=== PATIENT | female | born 1990 | race Two or more races ===

== ENCOUNTER 2020-04-16 15:00 | Inpatient (IN) | payer MEDICAID, OTHER ==
[~2020-04-16] VITALS: Ht 154.9 cm; Wt 92.1 kg
[2020-04-16 16:17] LABS: Basophils # (auto) 0 10 ^3/uL (0-0.2); Basophils % (auto) 0.5 % (0.0-2.0); Eosinophils # (auto) 0.1 10 ^3/uL (0-0.8); Eosinophils % (auto) 0.8 % (0.0-7.0); Hematocrit 38.6 % (36.0-46.0); Hemoglobin 12.4 g/dL (12.2-16.2); Lymphocytes # (auto) 0.8 10 ^3/uL (0.4-5.4); Lymphocytes % (auto) 9.3 % (10.0-50.0); Mean Corpuscular Hgb Conc. 32.2 g/dL (32.0-36.0); Mean Corpuscular Volume 83.8 fL (80.0-100.0); Monocytes # (auto) 0.3 10 ^3/uL (0-1.3); Monocytes % (auto) 3.9 % (0.0-12.0); Neutrophils # (auto) 7.4 10 ^3/uL (1.6-8.6); Neutrophils % (auto) 85.5 % (37.0-80.0); Platelet Count (auto) 274 10^3/uL (140-450); Red Cell Distribution Width 14.3 % (11.8-14.3); White Blood Cell 8.7 10^3/uL (4.4-10.8)
[2020-04-16 16:24] LABS: Urine Bacteria NONE SEEN /hpf (None Seen); Urine Blood 2+ /uL (Negative); Urine Mucus FEW (None Seen); Urine Specific Gravity 1.013 (1.001-1.035); Urine WBC 13 /hpf (0 - 5)
[2020-04-16 16:36] LABS: Albumin 3.9 g/dL (3.4-5.0); Calcium 9.4 mg/dL (8.5-10.1); Potassium 4.2 mmol/L (3.5-5.1)
[2020-04-16 16:41] LABS: BUN/Creatinine Ratio 14.8; Bilirubin, Total 0.3 mg/dL (0.2-1.0); Total Protein 8.2 g/dL (6.4-8.2)
[2020-04-16] MEDS ORDERED: ONDANSETRON HCL 4 MG/2 ML VIAL IV ONE (19:30)
[2020-04-16] MEDS ORDERED: KETOROLAC TROMETH 30 MG/ML 1ML VIAL IV ONE (19:30)
[2020-04-16] MEDS ORDERED: SODIUM CHLORIDE 0.9% 1,000 ML IVB ONE (19:30)
[2020-04-17] MEDS ORDERED: KETOROLAC TROMETH 30 MG/ML 1ML VIAL IV ONE (02:45)
[2020-04-17] MEDS ORDERED: NITROGLYCERIN 0.4 MG SL TAB SL PRN (03:30)
[2020-04-17] MEDS ORDERED: MORPHINE SULFATE 4 MG/ML SYR/VIAL IV PRN (03:30)
[2020-04-17] MEDS ORDERED: ONDANSETRON HCL 4 MG/2 ML VIAL IV PRN (03:30)
[2020-04-17] MEDS ORDERED: MORPHINE SULF INJ 2 MG/ML SYRINGE 1ML IV PRN (03:30)
[2020-04-17] MEDS ORDERED: KETOROLAC TROMETH 30 MG/ML 1ML VIAL IV PRN (03:30)
[2020-04-17] MEDS ORDERED: ACETAMINOPHEN 325 MG TAB PO PRN (03:30)
[2020-04-17] MEDS ORDERED: HYDROcodone-ACET 5/325MG TAB PO PRN (03:30)
[2020-04-17] MEDS ORDERED: SODIUM CHLORIDE 0.9% 1,000 ML IV SCH (03:30)
[2020-04-17] MEDS ORDERED: DOCUSATE SOD 100 MG CAP PO PRN (03:30)
[2020-04-17 08:31] LABS: Basophils # (auto) 0.1 10 ^3/uL (0-0.2); Basophils % (auto) 0.9 % (0.0-2.0); Eosinophils # (auto) 0.2 10 ^3/uL (0-0.8); Eosinophils % (auto) 3.4 % (0.0-7.0); Hematocrit 36.3 % (36.0-46.0); Lymphocytes # (auto) 1.5 10 ^3/uL (0.4-5.4); Lymphocytes % (auto) 25.6 % (10.0-50.0); Mean Corpuscular Hemoglobin 27.8 pg (28.0-32.0); Mean Corpuscular Hgb Conc. 33.1 g/dL (32.0-36.0); Monocytes # (auto) 0.4 10 ^3/uL (0-1.3); Monocytes % (auto) 6.7 % (0.0-12.0); Neutrophils # (auto) 3.8 10 ^3/uL (1.6-8.6); Neutrophils % (auto) 63.4 % (37.0-80.0); Nucleated Red Blood Cells % 0.2 %; Platelet Count (auto) 251 10^3/uL (140-450); Red Blood Cells 4.31 10^6/uL (4.0-5.20); Red Cell Distribution Width 14.7 % (11.8-14.3)
--- NOTE | 2020-04-17 09:00 | NUR ---
RECEIVED PT FROM ER RECEIVED PT FROM ER. PT STABLE AT THIS TIME. ORIENTED TO ROOM. BED IN LOWEST POSITION, TOP TWO SIDE RAILS UP, CALL LIGHT WITHIN REACH.
[2020-04-17 09:12] LABS: BUN/Creatinine Ratio 20.3; Calcium 8.7 mg/dL (8.5-10.1); Potassium 3.9 mmol/L (3.5-5.1)
[2020-04-17] MEDS ORDERED: PANTOPRAZOLE 40 MG/10 ML VIAL INJ IV SCH (10:00)
[2020-04-17] MEDS ORDERED: ENOXAPARIN SOD 40 MG/0.4 ML SYRINGE SC SCH (10:00)
[2020-04-17 12:58] VITALS: BP 112/68
[2020-04-17] MEDS ORDERED: ACET-1079 PO (14:43)
[2020-04-17] MEDS ORDERED: HYDR-4833 PO (14:43)
[2020-04-17 16:43] VITALS: BP 110/71
--- NOTE | 2020-04-17 17:30 | NUR ---
DISCHARGE DISCHARGE INSTRUCTIONS GIVEN TO PT. PT VERBALIZED UNDERSTANDING. PAPERWORK GIVEN TO PATIENT. SHE IS AWARE MD SENT PRESCRIPTIONS TO PHARMACY. IV D/C'D IV CATHETER INTACT. PER DR RAY DISCHARGE PT WITH URINE STRAINER, STRAINER GIVEN TO PT. PT STABLE AT THIS TIME. PT HAS ALL BELONGINGS. PT AWAITING RIDE HOME FROM FAMILY.
== END 2020-04-17 18:00 | disposition home or self-care (01) | DRG 465 ==
LOC: ER 15:00 → TELE 15:01 → TELE-CENTR 04-17 08:45
PROVIDERS: ADMIT Nurse Practitioner Family; ATTEND Nurse Practitioner Family
DX: N20.2 Calculus of kidney with calculus of ureter (principal); E66.01 Morbid (severe) obesity due to excess calories; J45.909 Unspecified asthma, uncomplicated; Z68.38 Body mass index [BMI] 38.0-38.9, adult
CPT/HCPCS: 36415; 74176; 80048; 80053; 81001; 84702; 85025; C9113; G0378; J1885; J2405

== ENCOUNTER → 2020-05-20 | Emergency (ER) | payer MEDICAID ==
[~2020-05-20] VITALS: Ht 154.9 cm; Wt 90.7 kg
[~2020-05-20] MED LIST: ACET-1079 PO; HYDR-4833 PO
[2020-05-20 12:46] VITALS: BP 120/81
== END | disposition home or self-care (01) ==
LOC: ER 12:09
DX: M79.10 Myalgia, unspecified site (principal); R43.8 Other disturbances of smell and taste; J45.909 Unspecified asthma, uncomplicated; Z20.828 Contact with and (suspected) exposure to other viral communicable diseases; Z87.442 Personal history of urinary calculi
CPT/HCPCS: 36415; 71045; 87426

== ENCOUNTER 2022-05-15 13:15 | Emergency (ER) | payer BC, MEDICAID ==
[~2022-05-15] VITALS: Ht 154.9 cm; Wt 87.6 kg
[2022-05-15 13:25] VITALS: BP 115/81
[2022-05-15 14:22] LABS: Urine Bacteria FEW /hpf (None Seen); Urine Blood Negative /uL (Negative); Urine Hyaline Cast FEW /lpf (0 - 2); Urine Mucus FEW (None Seen); Urine Specific Gravity 1.034 (1.001-1.035); Urine WBC 10 /hpf (0 - 5)
[2022-05-15] MEDS ORDERED: PROM1SOL4 PO (17:14)
[2022-05-15] MEDS ORDERED: METH4PAK PO (17:14)
[2022-05-15] MEDS ORDERED: ALBU108A5 IN (17:14)
[2022-05-15] MEDS ORDERED: MONT-8 PO (17:14)
[2022-05-15] MEDS ORDERED: CEPH-510 PO (17:34)
== END 2022-05-15 18:08 | disposition home or self-care (01) ==
LOC: ER 13:15
DX: J10.1 Influenza due to other identified influenza virus with other respiratory manifestations (principal); J40 Bronchitis, not specified as acute or chronic; N39.0 Urinary tract infection, site not specified; Z20.822 Contact with and (suspected) exposure to COVID-19
CPT/HCPCS: 36415; 81001; 81025; 87426; 87804

== ENCOUNTER 2023-02-22 15:14 | Emergency (ER) | payer BC, MEDICAID ==
[~2023-02-22] VITALS: Ht 154.9 cm; Wt 86.5 kg
[~2023-02-22 15:14] MED LIST changes: +ALBU108A5 IN; +CEPH-510 PO; +METH4PAK PO; +MONT-8 PO; +PROM1SOL4 PO
[2023-02-22 16:07] VITALS: BP 130/81; PULSE 85; RESP 18; O2SAT 98
[2023-02-22] MEDS ORDERED: ACETAMINOPHEN 500 MG TAB PO ONE (16:15)
[2023-02-22 16:57] VITALS: TEMP 97.7
[2023-02-22] MEDS ORDERED: SUMA50TA2 PO (17:35)
== END 2023-02-22 17:41 | disposition home or self-care (01) ==
LOC: ER 15:14
DX: G43.909 Migraine, unspecified, not intractable, without status migrainosus (principal); J45.909 Unspecified asthma, uncomplicated
CPT/HCPCS: 70450

== ENCOUNTER 2023-11-14 02:41 | Emergency (ER) | payer MEDICAID ==
[~2023-11-14] VITALS: Ht 154.9 cm; Wt 86.2 kg
[~2023-11-14 02:41] MED LIST changes: +SUMA50TA2 PO
[2023-11-14 03:11] LABS: Urine Bacteria None Seen /hpf (None Seen)
[2023-11-14 03:39] LABS: Urine Amorphous Crystal FEW /hpf (None Seen); Urine Blood Negative /uL (Negative); Urine Clarity Turbid (Clear); Urine Color Light-Yellow (Yellow); Urine Mucus FEW (None Seen); Urine Protein, UAD Negative (Negative); Urine Specific Gravity 1.021 (1.001-1.035); Urine Urobilinogen Normal (Negative); Urine WBC 26 /hpf (0 - 5); Urine pH 5.5 (5.0-9.0)
[2023-11-14] MEDS: ALBUTEROL SULF 2.5 MG/0.5ML(0.5%) NEB SOLN NEB ONE (04:15)
[2023-11-14] MEDS: IPRATROPIUM BROM 0.5 MG/2.5ML INH SOL NEB ONE (04:15)
[2023-11-14] MEDS: BUDESONIDE (INHALATION) 0.5 MG/2 ML NEB NEB ONE (04:15)
[2023-11-14 04:20] VITALS: BP 100/72; PULSE 90; RESP 20; TEMP 98; O2SAT 97
[2023-11-14] MEDS ORDERED: CEPH500T PO (04:51)
[2023-11-14] MEDS: CEPHALEXIN 250 MG CAP PO ONE (05:43)
== END 2023-11-14 05:45 | disposition home or self-care (01) ==
LOC: ER 02:41
DX: O21.8 Other vomiting complicating pregnancy (principal); R10.2 Pelvic and perineal pain; J45.909 Unspecified asthma, uncomplicated; Z87.442 Personal history of urinary calculi
CPT/HCPCS: 36415; 81001; 84702; 94640; 99283; J7644

== ENCOUNTER 2025-05-08 16:26 | Emergency (ER) | payer MEDICAID ==
[~2025-05-08] VITALS: Ht 177.8 cm; Wt 102.2 kg
[~2025-05-08 16:26] MED LIST changes: +CEPH500T PO
[2025-05-08 17:43] LABS: Hematocrit 39.4 % (36.0-46.0); Hemoglobin 13.1 g/dL (12.2-16.2); Mean Corpuscular Hemoglobin 27.2 pg (28.0-32.0); Mean Corpuscular Volume 81.6 fL (80.0-100.0); Nucleated Red Blood Cells % 0.0 %
[2025-05-08 18:01] LABS: Albumin 4.3 g/dL (3.2-4.8); Alkaline Phosphatase 87 U/L (46-116); Anion Gap 9 (5-15); BUN/Creatinine Ratio 9.9 (10.0-20.0); Calcium 9.3 mg/dL (8.7-10.4); Carbon Dioxide 27 mmol/L (20-31); Chloride 104 mmol/L (98-107); Glucose 104 mg/dL (74-106); Lipase 28 U/L (12-53); Sodium 140 mmol/L (136-145); Total Protein 7.8 g/dL (5.7-8.2)
[2025-05-08 18:02] LABS: Bilirubin, Total 0.4 mg/dL (0.2-1.0)
[2025-05-08 18:03] LABS: Alanine Aminotransferase 9 U/L (7-40); Blood Urea Nitrogen 7 mg/dL (9-23); Potassium 3.4 mmol/L (3.5-5.1)
--- NOTE | 2025-05-08 18:05 | ED.PDOC ---
History of Present Illness HPI Comments 34-year-old female presents to the ER with prior medical history of asthma, kidney stones, chronic back pain and the chief complaint of abdominal pain. Patient reports having left upper quadrant in which started yesterday and feels like it is turning inside out. Patient notes that family members at home had similar symptoms but subsided. Patient is currently having nausea and vomiting, and took [id number] meds with no relief. Denies any other symptoms at this time. Denies chills, fever, /D, SOB, CP. No other associated symptoms, modifiers, recent injuries or sick contacts present at this time. Chief Complaint: Abdominal Pain Time Seen by MD: 17:30 Primary Care Provider: NONE Reviewed Notes: Nurses Notes, Medications, Allergies Allergies: Coded Allergies: NO KNOWN ALLERGIES (Unverified , 10/07/13) Home Meds Active Scripts Cephalexin Monohydrate (Cephalexin) 500 Mg Tab, 1 TAB PO TID for 7 Days, #21 TAB Prov:RENY RAM DO 11/14/23 Sumatriptan Succinate (Imitrex) 50 Mg Tab, 1 TAB PO BID PRN, #20 TAB 1 Refill Prov:EUN MORENO 02/22/23 Cephalexin ( Keflex 500) 500 Mg Cap, 1 CAP PO QID for 7 Days, #28 CAP Prov:VERONA MARVIN 05/15/22 Montelukast Sodium (MONTELUKAST SODIUM) 10 Mg Tab, 1 TAB PO DAILY, #30 TAB 5 Refills Prov:VERONA MARVIN 05/15/22 Albuterol Sulfate (Albuterol Sulfate Hfa) 108 Mcg/Act Aer, 108 MCG IN TID PRN, #1 AER Prov:VERONA MARVIN 05/15/22 Promethazine-Dm (Promethazine Dm 6.25-15 mg/5Ml) 1 Janee Janee, 5 ML PO TID PRN, #200 ML Prov:VERONA MARVIN 05/15/22 Methylprednisolone (Medrol Dosepak) 4 Mg Derek, 4 MG PO UD, #21 TAB UAD Prov:VERONA MARVIN 05/15/22 Hydrocodone-Acetaminophen ([place] 5/325MG) 1 Tab Tb, 1 TAB PO Q6HP PRN MDD severe pain, #20 MG Prov:IMANI RAY MD 04/17/20 Acetaminophen (Tylenol) 325 Mg Tb, 650 MG PO Q6HR PRN MDD mild to moderate pain , #40 TAB Prov:IMANI RAY MD 04/17/20 Information Source: Patient Mode of Arrival: Ambulatory Severity: Moderate Timing: Hours Duration: Since onset, Hours Prehospital treatment: None Past Medical History PAST MEDICAL HISTORY: Asthma, Kidney Stones Past Medical History (Other): Chronic back pain Surgical History: Denies all surgeries 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 Hx Family History Family History: Reviewed,noncontributory to illness, Unknown Social History Smoker: Non-Smoker Alcohol: Rarely Drugs: Denies Drug Use Lives In: Home Constitutional: denies: chills, diaphoresis, fatigue, fever, malaise, sweats, weakness, others EENTM: denies: blurred vision, double vision, ear bleeding, ear discharge, ear drainage, ear pain, ear ringing, eye pain, eye redness, hearing loss, mouth pain, mouth swelling, nasal discharge, nose bleeding, nose congestion, nose pain, photophobia, tearing, throat pain, throat swelling, voice changes, others Respiratory: denies: cough, hemoptysis, orthopnea, SOB at rest, shortness of breath, SOB with excertion, stridor, wheezing, others Cardiovascular: denies: chest pain, dizzy spells, diaphoresis, Dyspnea on exertion, edema, irregular heart beat, left arm pain, lightheadedness, palpitations, PND, syncope, others Gastrointestinal: reports: abdominal pain, nausea, vomiting; denies: abdomen distended, blood streaked bowels, constipated, diarrhea, dysphagia, difficulty swallowing, hematemesis, melena, poor appetite, poor fluid intake, rectal bleeding, rectal pain, others Genitourinary: denies: abnormal vagina bleeding, burning, dyspareunia, dysuria, flank pain, frequency, hematuria, incontinence, pain, , vagina discharge, urgency, others Neurological: denies: dizziness, fainting, headache, left sided numbness, left sided weakness, numbness, paresthesia, pre-existing deficit, right sided numbness, right sided weakness, seizure, speech problems, tingling, tremors, weakness, others Musculoskeletal: denies: back pain, gout, joint pain, joint swelling, muscle pain, muscle stiffness, neck pain, others Integumetry: denies: bruises, change in color, change in hair/nails, dryness, laceration, lesions, lumps, rash, wounds, others Allergic/Immunocompromised: denies: Difficulty Healing, Frequent Infections, Hives, Itching, others Hematologic/Lymphatic: denies: anemia, blood clots, easy bleeding, easy bruising, swollen glands, others Endocrine: denies: excessive hunger, excessive sweating, excessive thirst, excessive urination, flushing, intolerance to cold, intolerance to heat, unexplained weight gain, unexplained weight loss, others Psychiatric: denies: anxiety, bipolar disorder, depression, hopeless, panic disorder, schizophrenia, sleepless, suicidal, others All Other Systems: Reviewed and Negative Physical Exam Exam Comments Left upper quadrant pain General Appearance: No Apparent Distress, Normal HEENT: Normal ENT Inspection, Pharynx Normal, TMs Normal Neck: Full Range of Motion, Non-Tender, Normal, Normal Inspection Respiratory: Chest Non-Tender, Lungs Clear, No Accessory Muscle Use, No Respiratory Distress, Normal Breath Sounds Cardiovascular: No Edema, No JVD, No Murmur, No Gallop, Normal Peripheral Pulses, Regular Rate/Rhythm Breast Exam: Deferred Gastrointestinal: No Organomegaly, Non Tender, No Pulsatile Mass, Normal Bowel Sounds, Soft Genitalia: Deferred Pelvic: Deferred Rectal: Deferred Extremities: No calf tenderness, Normal capillary refill, Normal inspection, Normal range of motion, Non-tender, No pedal edema Musculoskeletal : Apperance: Normal Neurologic: Alert, vice president marketing & development II-XII nml as Tested, No Motor Deficits, Normal Affect, Normal Mood, No Sensory Deficits Cerebellar Function: Normal Reflexes: Normal Skin: Dry, Normal Color, Warm Lymphatic: No Adenopathy Was a procedure done? Was a procedure done?: No Differential Dx Considerations may include: Enteritis, viral syndrome, electrolyte abnormalities, infectious etiology X-Ray, Labs, Meds, VS Vital Signs Date Time Temp Pulse Resp B/P (MAP) Pulse Ox O2 Delivery O2 Flow Rate FiO2 05/08/25 16:30 98.1 125 20 117/84 96 98.1 Lab Test 05/08/25 17:22 Range/Units White Blood Count 9.0 4.4-10.8 10^3/uL Red Blood Count 4.83 4.0-5.20 10^6/uL Hemoglobin 13.1 12.2-16.2 g/dL Hematocrit 39.4 36.0-46.0 % Mean Corpuscular Volume 81.6 80.0-100.0 fL Mean Corpuscular Hemoglobin 27.2 L 28.0-32.0 pg Mean Corpuscular Hemoglobin Concent 33.3 32.0-36.0 g/dL Red Cell Distribution Width 14.9 H 11.8-14.3 % Platelet Count 346 140-450 10^3/uL Mean Platelet Volume 6.9 6.9-10.8 fL Neutrophils (%) (Auto) 69.0 37.0-80.0 % Lymphocytes (%) (Auto) 21.0 10.0-50.0 % Monocytes (%) (Auto) 6.6 0.0-12.0 % Eosinophils (%) (Auto) 2.7 0.0-7.0 % Basophils (%) (Auto) 0.7 0.0-2.0 % Neutrophils # (Auto) 6.2 1.6-8.6 10 ^3/uL Lymphocytes # (Auto) 1.9 0.4-5.4 10 ^3/uL Monocytes # (Auto) 0.6 0-1.3 10 ^3/uL Eosinophils # (Auto) 0.2 0-0.8 10 ^3/uL Basophils # (Auto) 0.1 0-0.2 10 ^3/uL Nucleated Red Blood Cells 0.0 % Sodium Level 140 136-145 mmol/L Potassium Level 3.4 L 3.5-5.1 mmol/L Chloride Level 104 98-107 mmol/L Carbon Dioxide Level 27 20-31 mmol/L Anion Gap 9 5-15 Blood Urea Nitrogen 7 L 9-23 mg/dL Creatinine 0.71 0.550-1.02 mg/dL Glomerular Filtration Rate Calc 115 >90 mL/min BUN/Creatinine Ratio 9.9 L 10.0-20.0 Serum Glucose 104 74-106 mg/dL Calcium Level 9.3 8.7-10.4 mg/dL Total Bilirubin 0.4 0.2-1.0 mg/dL Aspartate Amino Transferase (AST) 14 13-40 U/L Alanine Aminotransferase (ALT) 9 7-40 U/L Alkaline Phosphatase 87 46-116 U/L Total Protein 7.8 5.7-8.2 g/dL Albumin 4.3 3.2-4.8 g/dL Lipase 28 12-53 U/L Time of 1ST Reevaluation: 18:00 Reevaluation 1ST: Unchanged Patient Education/Counseling: Diagnosis, Treatment, Prognosis Family Education/Counseling: No Family Present SEPSIS Sepsis Screen Date sepsis recognized/suspect: May 08, 2025 Time Sepsis recognized/suspect: 1631 Recent Procedure: No On Antibiotic Therapy: No Respiratory Rate >20: No Heart Rate >90: Yes Temp<36 C (96.8 F) or >38.3 C: No SBP <90 or MAP <65 mmHG: No New Acute Mental Status Change: No Is the patient on CPAP, BIPAP,: No Physician Orders Urinalysis (05/08/25 17:09) Vital Signs Date Time Temp Pulse Resp B/P (MAP) Pulse Ox O2 Delivery O2 Flow Rate FiO2 05/08/25 16:30 98.1 125 20 117/84 96 98.1 Laboratory Tests Test 05/08/25 17:22 White Blood Count 9.0 10^3/uL (4.4-10.8) Departure 1 Departure Time of Disposition: 18:48 (In my judgment the patient likely with gastroenteritis given sick contacts and normal labs with stomach pain. We will discharge patient with outpatient follow up) Impression: Primary Impression: Gastroenteritis Disposition: 01 HOME / SELF CARE / HOMELESS Condition: Stable Additional Instructions: You likely have gastroenteritis. For pain you can take the followinam: Ibuprofen 400mg with food Noon: Acetaminophen 1000mg 4pm: Ibuprofen 400mg with food 8pm: Acetaminophen 1000mg It is important to stay well hydrated and well rested. You should follow up with your regular doctor within one week to ensure you are doing better. If your symptoms worsen or you have any other concerns then please return to the ER. Discharged With: Self Critical Care Note Critical Care Time?: No Stability Stability form required: No I personally scribed for RAUL LYNNE MD ([email or web address]) on 05/08/25 at 18:05. Electronically submitted by Jake De La Rosa ([email or web address]). RAUL LYNNE MD May 08, 2025 18:05
[2025-05-08 19:29] VITALS: BP 143/95; PULSE 86; RESP 18; TEMP 99.1; O2SAT 97
[2025-05-08] MEDS: FAMOTIDINE 20 MG TAB PO ONE (19:29)
[2025-05-08] MEDS: DICYCLOMINE HCL 10 MG CAP PO ONE (19:29)
[2025-05-08] MEDS: ACETAMINOPHEN 325 MG TAB PO ONE (19:29)
[2025-05-08] MEDS: MAALOX PLUS or MAALOX 30 ML PO ONE (19:29)
[2025-05-08] MEDS: ONDANSETRON ODT 4 MG TAB PO ONE (19:29)
== END 2025-05-08 19:38 | disposition home or self-care (01) ==
LOC: ER 16:26
DX: K52.9 Noninfective gastroenteritis and colitis, unspecified (principal); F10.90 Alcohol use, unspecified, uncomplicated; J45.909 Unspecified asthma, uncomplicated; G89.29 Other chronic pain; Z79.899 Other long term (current) drug therapy; Z87.442 Personal history of urinary calculi
CPT/HCPCS: 36415; 80053; 83690; 85025; 99284; J0500; Q0162